=== PATIENT | male | born 1965 | race African-American/Black ===

== ENCOUNTER 2022-05-25 10:42 | Inpatient (IN) | payer BC ==
[2022-05-25 13:19] LABS: Acetaminophen Less than 10.0 mcg/mL (10.0-30.0); Alcohol Less than 10 mg/dL (Less than 10); Salicylate Less than 8.0 mg/dL (15.0-30.0)
[2022-05-25 13:28] LABS: ALT (SGPT) 16 U/L (8-55); AST (SGOT) 18 U/L (5-34); Albumin 4.3 g/dL (3.5-5.0); Alkaline Phosphatase 85 U/L (40-110); Anion Gap 23 mmol/L (10-20); BUN (Urea Nitrogen) 71 mg/dL (8.4-25.7); Bilirubin, Total 1.1 mg/dL (0.2-1.2); CK (CPK) 224 U/L (30-200); Calc. Creatinine Clearance 0 mL/min (70-130); Calcium 9.5 mg/dL (7.8-10.44); Carbon Dioxide 21 mmol/L (22-29); Chloride 106 mmol/L (98-107); Estimated GFR 23; Globulin 3.3 g/dL (2.4-3.5); Potassium 5.2 mmol/L (3.5-5.1); Protein, Total 7.6 g/dL (6.0-8.3); Sodium 145 mmol/L (136-145)
[2022-05-25 13:32] LABS: Glucose 584 mg/dL (70-105)
[2022-05-25 13:37] LABS: #Lymphocytes 0.5 thou/uL (1.20-3.40); #Monocytes 0.6 thou/uL (0.11-0.59); #Neutrophils 12.3 thou/uL (1.40-6.50); %Basophils 0.2 % (0.0-1.0); %Eosinophils 0.2 % (0.0-10.0); %Monocytes 4.1 % (0.0-10.0); %Neutrophils 91.5 % (42.0-75.0); Large Platelets SLIGHT; MDiff Complete? YES; Mean Corpuscular HGB CONC 31.9 g/dL (32.0-36.0); Mean Corpuscular Hemoglobin 31.7 pg (27.0-31.0); Mean Corpuscular Volume 99.3 fL (78.0-98.0); Mean Platelet Volume 12.4 fL (7.4-10.4); Platelet Count 65 thou/uL (130-400); Platelet Morphology Comment Appears Decreased; Polychromasia SLIGHT = 2-3 cells (100X) (0-2/hpf); RBC Distribution Width 13.2 % (11.5-14.5); Red Blood Cell (RBC) Count 5.69 mill/uL (4.70-6.10); White Blood Cell (WBC) Count 13.5 thou/uL (4.8-10.8)
[2022-05-25 13:52] LABS: CKMB 3.2 ng/mL (0-6.6)
[2022-05-25 13:53] LABS: Phosphorus 4.8 mg/dL (2.3-4.7)
[2022-05-25 13:55] LABS: Magnesium 2.7 mg/dL (1.6-2.6)
[2022-05-25 14:12] LABS: Actual Bicarbonate (HCO3v) 23 mEq/L (22-28); Base Excess -3.9 mEq/L (-2.0 to +3.0); Calcium, Ionized (venous) 1.12 mmol/L (1.16-1.32); Chloride (VBG) 109 mmol/L (98-106); Potassium (VBG) 5.25 mmol/L (3.70-5.30); Sodium 146.8 mmol/L (133-146); pH (venous) 7.29 (7.32-7.43)
[2022-05-25] MEDS ORDERED: Aspirin Chewable 81 MG TAB ONE (14:32)
[2022-05-25] MEDS ORDERED: INSULIN REGULAR IN 0.9 % NACL 100 UNIT/100 ML BAG ONE (14:33)
[2022-05-25 14:57] LABS: Amphetamine Not Detected (NotDetected); Barbiturates Screen Not Detected (NotDetected); Benzodiazepine Screen Not Detected (NotDetected); Cocaine Metabolite Screen Not Detected (NotDetected); Methadone Not Detected (NotDetected); Methamphetamine Not Detected (NotDetected); Opiate Screen Not Detected (NotDetected); Oxycodone Screen Not Detected (NotDetected); Phencyclidine (PCP) Not Detected (NotDetected); THC/Cannabinoid Screen Not Detected (NotDetected); Tricyclic Screen Not Detected (NotDetected)
[2022-05-25 14:58] LABS: Bilirubin Negative (Negative); Blood, Urine Negative (Negative); Clarity Clear (Clear); Glucose, Urine (Dipstick) Greater than 1000 mg/dL (Negative); Ketone, Urine 20 mg/dL (Negative); Leukocyte Negative Leu/uL (Negative); Nitrite Negative (Negative); Protein, Urine (Dipstick) Negative (Neg-Trace); Specific Gravity, Urine 1.016 (1.002-1.036); Urobilinogen Normal mg/dL (Less than 2)
[2022-05-25] MEDS ORDERED: Acetaminophen 325 MG TAB PO PRN (16:43)
[2022-05-25] MEDS ORDERED: Electrolyte Replacement Protocol 1 EACH IVPB PRN (16:43)
[2022-05-25] MEDS ORDERED: NS 0.9% w/ 20 MEQ KCL 1,000 ML IV PRN ×2 (16:43)
[2022-05-25] MEDS ORDERED: hydrALAZINE 20 MG/ML VIAL SLOW IVP PRN (16:43)
[2022-05-25] MEDS ORDERED: Sodium Chloride 0.9% 1,000 ML IV PRN ×4 (16:43)
[2022-05-25] MEDS ORDERED: Dextrose 5 %-0.45 % NaCl 1,000 ML IV PRN (16:43)
[2022-05-25] MEDS ORDERED: HUMULIN R 100 UNITS in Sodium Chloride 0.9% 100 ML IVPB SCH (16:45)
[2022-05-25 17:09] LABS: Troponin I 0.038 ng/mL (< 0.028)
[2022-05-25 17:33] LABS: Anion Gap 22 mmol/L (10-20); BUN (Urea Nitrogen) 62 mg/dL (8.4-25.7); Calc. Creatinine Clearance 0 mL/min (70-130); Calcium 8.8 mg/dL (7.8-10.44); Carbon Dioxide 15 mmol/L (22-29); Chloride 117 mmol/L (98-107); Estimated GFR 30; Glucose 351 mg/dL (70-105); Potassium 4.3 mmol/L (3.5-5.1); Sodium 150 mmol/L (136-145)
[2022-05-25] MEDS: D5 1/2 NS w/20 mEq KCL 1,000 ML IV PRN ×2 (19:00→23:00)
[2022-05-25] MEDS ORDERED: Vancomycin 1 GM in Premix Bag 1 BAG IVPB SCH ×2 (20:00→22:00)
[2022-05-25 20:57] LABS: Troponin I 0.048 ng/mL (< 0.028)
[2022-05-25 20:59] LABS: Anion Gap 13 mmol/L (10-20); BUN (Urea Nitrogen) 58 mg/dL (8.4-25.7); Calc. Creatinine Clearance 0 mL/min (70-130); Calcium 8.4 mg/dL (7.8-10.44); Carbon Dioxide 22 mmol/L (22-29); Chloride 124 mmol/L (98-107); Estimated GFR 34; Glucose 84 mg/dL (70-105); Potassium 3.7 mmol/L (3.5-5.1); Sodium 155 mmol/L (136-145)
[2022-05-25] MEDS ORDERED: Cefepime 1 GM in Sodium Chloride 0.9% 100 ML IVPB SCH (21:00)
[2022-05-25 21:32] VITALS: BMI 28.5
[2022-05-26 01:36] LABS: Anion Gap 13 mmol/L (10-20); BUN (Urea Nitrogen) 51 mg/dL (8.4-25.7); Calc. Creatinine Clearance 56 mL/min (70-130); Calcium 8.1 mg/dL (7.8-10.44); Carbon Dioxide 22 mmol/L (22-29); Chloride 122 mmol/L (98-107); Estimated GFR 39; Glucose 284 mg/dL (70-105); Sodium 153 mmol/L (136-145)
[2022-05-26] MEDS: D5 1/2 NS w/20 mEq KCL 1,000 ML IV PRN (03:05)
[2022-05-26 05:02] LABS: Anion Gap 10 mmol/L (10-20); BUN (Urea Nitrogen) 43 mg/dL (8.4-25.7); Calc. Creatinine Clearance 62 mL/min (70-130); Calcium 8.1 mg/dL (7.8-10.44); Carbon Dioxide 22 mmol/L (22-29); Estimated GFR 44; Glucose 147 mg/dL (70-105); Potassium 3.7 mmol/L (3.5-5.1); Sodium 155 mmol/L (136-145)
[2022-05-26 05:06] LABS: #Lymphocytes 0.9 thou/uL (1.20-3.40); #Monocytes 0.5 thou/uL (0.11-0.59); #Neutrophils 9.2 thou/uL (1.40-6.50); %Basophils 0.1 % (0.0-1.0); %Eosinophils 0.3 % (0.0-10.0); %Lymphocytes 8.5 % (21.0-51.0); %Monocytes 4.5 % (0.0-10.0); %Neutrophils 86.7 % (42.0-75.0); Hemoglobin 16.1 g/dL (14.0-18.0); Mean Corpuscular HGB CONC 33.1 g/dL (32.0-36.0); Mean Corpuscular Hemoglobin 32.9 pg (27.0-31.0); Mean Corpuscular Volume 99.2 fL (78.0-98.0); Platelet Count 60 thou/uL (130-400); RBC Distribution Width 13.6 % (11.5-14.5); Red Blood Cell (RBC) Count 4.88 mill/uL (4.70-6.10); White Blood Cell (WBC) Count 10.6 thou/uL (4.8-10.8)
[2022-05-26 05:08] LABS: Chloride 127 mmol/L (98-107)
[2022-05-26] MEDS: Levothyroxine Sodium 50 MCG TAB PO SCH (05:40)
[2022-05-26] MEDS: Hydrocortisone 10 mg Tablet PO SCH (08:03)
[2022-05-26] MEDS ORDERED: Cefepime 1 GM in Sodium Chloride 0.9% 100 ML IVPB SCH (09:00)
[2022-05-26 16:52] LABS: Anion Gap 13 mmol/L (10-20); BUN (Urea Nitrogen) 33 mg/dL (8.4-25.7); Calc. Creatinine Clearance 65 mL/min (70-130); Calcium 8.2 mg/dL (7.8-10.44); Carbon Dioxide 23 mmol/L (22-29); Chloride 122 mmol/L (98-107); Estimated GFR 46; Glucose 294 mg/dL (70-105); Potassium 5.3 mmol/L (3.5-5.1); Sodium 153 mmol/L (136-145)
[2022-05-26] MEDS ORDERED: Dextrose 50% Abboject 50 ML SYRINGE SLOW IVP PRN (17:14)
[2022-05-26] MEDS ORDERED: Dextrose 5% in Water 1,000 ML IV PRN (17:14)
[2022-05-26] MEDS ORDERED: Communication Order-Pharmacy FS PRN (17:57)
[2022-05-26] MEDS: HumaLOG 300 UNITS/3 ML VIAL SC PRN ×2 (18:12→20:41)
[2022-05-26] MEDS ORDERED: Vancomycin 1.5 GRAM/300 ML BAG 1.5 GM in Premix Bag 1 BAG IVPB SCH (20:00)
[2022-05-27 05:45] LABS: Anion Gap 11 mmol/L (10-20); BUN (Urea Nitrogen) 28 mg/dL (8.4-25.7); Calc. Creatinine Clearance 69 mL/min (70-130); Calcium 8.4 mg/dL (7.8-10.44); Carbon Dioxide 23 mmol/L (22-29); Estimated GFR 49; Glucose 169 mg/dL (70-105); Magnesium 2.4 mg/dL (1.6-2.6); Sodium 156 mmol/L (136-145)
[2022-05-27] MEDS: Levothyroxine Sodium 50 MCG TAB PO SCH (06:00)
[2022-05-27 06:23] LABS: Chloride 126 mmol/L (98-107)
[2022-05-27 06:25] LABS: Albumin 3.3 g/dL (3.5-5.0); Phosphorus 1.5 mg/dL (2.3-4.7)
[2022-05-27 07:31] LABS: Hemoglobin A1c 11.1 % (4.0-6.0)
[2022-05-27] MEDS ORDERED: Desmopressin 0.2 mg Tablet PO SCH (08:00)
[2022-05-27] MEDS ORDERED: D5 1/4 NS 1,000 ML IV SCH (08:15)
[2022-05-27] MEDS: Hydrocortisone 10 mg Tablet PO SCH (09:01)
[2022-05-27] MEDS: PHOS-NAK 1 PKT PACK PO SCH ×3 (09:01→20:21)
[2022-05-27] MEDS: Insulin Glargine 30 UNITS/0.3 ML VIAL SC SCH (09:07)
[2022-05-27 16:20] LABS: Anion Gap 10 mmol/L (10-20); BUN (Urea Nitrogen) 28 mg/dL (8.4-25.7); Calc. Creatinine Clearance 59 mL/min (70-130); Calcium 8.9 mg/dL (7.8-10.44); Carbon Dioxide 27 mmol/L (22-29); Chloride 115 mmol/L (98-107); Estimated GFR 41; Glucose 383 mg/dL (70-105); Sodium 148 mmol/L (136-145)
[2022-05-27] MEDS: Sodium Chloride 0.45% 1,000 ML IV SCH (17:22)
[2022-05-27] MEDS: HumaLOG 300 UNITS/3 ML VIAL SC PRN (19:38)
[2022-05-28] MEDS ORDERED: Pantoprazole 40 MG VIAL IVP SCH (01:11)
[2022-05-28] MEDS: Calcium Carbonate 500 MG ChewTAB PO PRN ×2 (01:30→09:41)
[2022-05-28] MEDS: Sodium Chloride 0.45% 1,000 ML IV SCH ×2 (01:30→09:42)
[2022-05-28 04:37] LABS: Anion Gap 13 mmol/L (10-20); BUN (Urea Nitrogen) 21 mg/dL (8.4-25.7); Calc. Creatinine Clearance 78 mL/min (70-130); Calcium 8.8 mg/dL (7.8-10.44); Carbon Dioxide 20 mmol/L (22-29); Chloride 119 mmol/L (98-107); Estimated GFR 58; Glucose 108 mg/dL (70-105); Potassium 3.9 mmol/L (3.5-5.1); Sodium 148 mmol/L (136-145)
[2022-05-28] MEDS: Levothyroxine Sodium 50 MCG TAB PO SCH (05:45)
[2022-05-28 07:40] VITALS: TEMP 97.7
[2022-05-28] MEDS ORDERED: Sodium Bicarbonate Tab 325 MG TAB PO SCH (09:00)
[2022-05-28] MEDS ORDERED: Desmopressin 0.2 mg Tablet PO SCH (09:00)
[2022-05-28] MEDS: Hydrocortisone 10 mg Tablet PO SCH (09:39)
[2022-05-28] MEDS: Insulin Glargine 30 UNITS/0.3 ML VIAL SC SCH (09:39)
[2022-05-29] MEDS ORDERED: Pantoprazole 40 MG VIAL IVP SCH (09:00)
== END 2022-05-28 15:33 | disposition home or self-care (01) | DRG 643 ==
LOC: ERS 10:42 → EEVIPCON 14:24 → ERHOLD 14:24 → IMCU/EMU 18:53
PROVIDERS: ADMIT Internal Medicine; ATTEND Hospitalist
DX: E23.2 Diabetes insipidus (principal); E11.10 Type 2 diabetes mellitus with ketoacidosis without coma; N17.9 Acute kidney failure, unspecified; E27.40 Unspecified adrenocortical insufficiency; Z20.822 Contact with and (suspected) exposure to COVID-19; E78.5 Hyperlipidemia, unspecified; D69.6 Thrombocytopenia, unspecified; E03.9 Hypothyroidism, unspecified; D86.9 Sarcoidosis, unspecified; E83.39 Other disorders of phosphorus metabolism; Z86.16 Personal history of COVID-19; Z79.890 Hormone replacement therapy; Z79.899 Other long term (current) drug therapy
CPT/HCPCS: 36415; 36416; 70450; 71045; 80048; 80053; 80306; 80307; 81003; 82010; 82040; 82340; 82550; 82553; 82570; 82805; 83036; 83735; 83935; 84100; 84300; 84439; 84443; 84484; 85025; 85652; 86140; 87040; 93005; 94760; 96361; 96374; C9113; J0692; J1815; J3370; J3480; J3490; J7042; J7070

== ENCOUNTER 2022-06-23 12:04 | Outpatient (CLI) | payer BC | END 2022-06-23 12:05 | disposition home or self-care (01) | LOC: BICULT 12:04 | PROVIDERS: ATTEND Internal Medicine Nephrology | DX: R60.0 Localized edema (principal); I82.411 Acute embolism and thrombosis of right femoral vein; I82.431 Acute embolism and thrombosis of right popliteal vein ==

== ENCOUNTER 2023-06-16 12:53 | Outpatient (CLI) | payer BC ==
[~2023-06-16 12:53] MED LIST: Iopamidol-370 76% 500 ML MDV (1 ML CHARGE) ONE
== END 2023-06-16 12:54 | disposition home or self-care (01) ==
LOC: BICCT 12:53
PROVIDERS: ATTEND Physician Assistant Medical
DX: K21.9 Gastro-esophageal reflux disease without esophagitis (principal)
CPT/HCPCS: 74177; 82565; Q9967

== ENCOUNTER 2023-11-16 15:06 | Emergency (ER) | payer BC ==
[2023-11-16] MEDS ORDERED: Amiodarone 150 MG/3 ML VIAL ONE (15:12)
[2023-11-16] MEDS ORDERED: Calcium Chloride 1 GM/10 ML Abboject SYRINGE ONE (15:12)
[2023-11-16] MEDS ORDERED: Sodium Bicarb 50 MEQ/50 ML Abboject 8.4% SYRINGE ONE (15:12)
[2023-11-16] MEDS ORDERED: EPINEPHrine 1 MG/10 ML Abboject SYRINGE ONE (15:12)
[2023-11-16] MEDS ORDERED: Propofol 1,000 MG/100 ML VIAL IV ONE (15:15)
[2023-11-16] MEDS ORDERED: NOREPINEPHRINE 8 MG/250 ML-D5W 250 ML ONE (15:24)
[2023-11-16] MEDS ORDERED: EPINEPHrine 1 MG/ML VIAL ONE (15:39)
[2023-11-16] MEDS ORDERED: Vasopressin 20 UNITS/ML VIAL ONE (15:40)
[2023-11-16] MEDS ORDERED: Fentanyl CADD 100 ML IV SCH (15:45)
[2023-11-16 15:47] LABS: #Monocytes 0.3 thou/uL (0.11-0.59); #Neutrophils 2.8 thou/uL (1.40-6.50); %Basophils 0.2 % (0.0-1.0); %Eosinophils 0.6 % (0.0-10.0); %Lymphocytes 33.7 % (21.0-51.0); %Monocytes 6.3 % (0.0-10.0); %Neutrophils 55.1 % (42.0-75.0); Hematocrit 30.2 % (42.0-52.0); Hemoglobin 9.4 g/dL (14.0-18.0); Mean Corpuscular HGB CONC 31.1 g/dL (32.0-36.0); Mean Corpuscular Hemoglobin 33.5 pg (27.0-31.0); Mean Corpuscular Volume 107.5 fl (78.0-98.0); Mean Platelet Volume 11.6 fL (7.4-10.4); RBC Distribution Width 15.8 % (11.5-14.5); Red Blood Cell (RBC) Count 2.81 mill/uL (4.70-6.10); White Blood Cell (WBC) Count 5.1 10x3/uL (4.8-10.8)
[2023-11-16 15:48] LABS: Platelet Count 53 10x3/uL (130-400)
[2023-11-16 15:58] LABS: INR-International Normal Ratio 3.5; Prothrombin Time 35.5 sec (12.0-14.7)
[2023-11-16 16:00] LABS: PTT 113.8 sec (22.9-36.1)
[2023-11-16 16:04] LABS: Acetaminophen Less than 10 mcg/mL (10.0-30.0); Alcohol Less than 10.0 mg/dL (Less than 10); Critical Call Chem-Lactate NUR.ALT1@1604; Lipase 52 U/L (8-78); Magnesium 1.1 mg/dL (1.6-2.6); Salicylate Less than 8.0 mg/dL (15.0-30.0)
[2023-11-16 16:05] LABS: ALT (SGPT) 386 U/L (8-55); AST (SGOT) 472 U/L (5-34); Albumin 1.2 g/dL (3.5-5.0); Alkaline Phosphatase 41 U/L (40-110); Anion Gap 18 mmol/L (10-20); BUN (Urea Nitrogen) 15 mg/dL (8.4-25.7); Bilirubin, Total 0.3 mg/dL (0.2-1.2); Calc. Creatinine Clearance 0 mL/min (70-130); Carbon Dioxide 11 mmol/L (22-29); Chloride 125 mmol/L (98-107); Estimated GFR 96; Globulin 0.8 g/dL (2.4-3.5); Glucose 150 mg/dL (70-105)
[2023-11-16 16:07] LABS: Troponin I 0.031 ng/mL (< 0.028)
[2023-11-16 16:08] LABS: D-Dimer Test 10.77 *mcg/mL (0.27-0.43)
[2023-11-16] MEDS ORDERED: ALTEPLASE 50 MG/50 ML VIAL ONE ×2 (16:16→16:17)
[2023-11-16 16:20] LABS: Calcium 3.8 mg/dL (7.8-10.44); Potassium 1.7 mmol/L (3.5-5.1); Sodium 152 mmol/L (136-145)
[2023-11-16] MEDS ORDERED: Potassium Chloride 20 MEQ (100 mL) BAG ONE ×2 (16:24→19:16)
[2023-11-16] MEDS ORDERED: Heparin 5,000 UNITS/ML VIAL ONE (16:29)
[2023-11-16] MEDS ORDERED: Heparin 25,000 units/D5W 500 ML ONE (16:29)
[2023-11-16 16:46] LABS: Actual Bicarbonate (HCO3a) 24.5 mEq/L (22-28); Analyzer IN Cardio ER; Base Excess (BEa) -2.2 mEq/L (-2.0 to +3.0); CO2 Tension 48.9 mmHg (35.0-45.0); Calcium, Ionized (arterial) 1.35 mmol/L (1.12-1.30); Carboxyhemoglobin (COHb) 0.4 gm% (0.0-3.0); Hematocrit-ABG 46 % (42.0-52.0); Hemoglobin (Hb) 15.7 g/dL (14.0-18.0); O2 Tension (PaO2), arterial 333.4 mmHg (80.0-100.0); Potassium - ABG Lab 3.24 mmol/L (3.70-5.30); pH, Arterial 7.318 (7.35-7.45)
[2023-11-16 16:58] LABS: ALV-art Gradient 318.475 mmHg (0-20)
[2023-11-16 17:54] LABS: Bacteria/HPF 3+ HPF (None Seen); Bilirubin Negative (Negative); Blood, Urine 1+ (Negative); CAUTI Indications for Culture Urological Procedure; Clarity Turbid (Clear); Glucose, Urine (Dipstick) Greater than 1000 mg/dL (Negative); Ketone, Urine Negative (Negative); Leukocyte 500 Leu/uL (Negative); Nitrite Negative (Negative); Protein, Urine (Dipstick) 100 mg/dL (Neg-Trace); RBC/HPF 0-3 HPF (0-3); Specific Gravity, Urine 1.016 (1.002-1.036); Squamous Epithelial None Seen HPF (0-3); Urobilinogen Normal mg/dL (Less than 2); WBC/HPF Greater than 50 HPF (0-3)
[2023-11-16 17:56] LABS: Amphetamine Not Detected (NotDetected); Barbiturates Screen Not Detected (NotDetected); Benzodiazepine Screen Not Detected (NotDetected); Cocaine Metabolite Screen Not Detected (NotDetected); Methadone Not Detected (NotDetected); Methamphetamine Not Detected (NotDetected); Opiate Screen Not Detected (NotDetected); Oxycodone Screen Not Detected (NotDetected); Phencyclidine (PCP) Not Detected (NotDetected); THC/Cannabinoid Screen Not Detected (NotDetected); Tricyclic Screen Not Detected (NotDetected)
[2023-11-16 18:00] LABS: Urine Culture Reflex Yes Yes
[2023-11-16] MEDS ORDERED: Sodium Chloride 0.9% 200 ML ONE (18:19)
[2023-11-16] MEDS ORDERED: cefTRIAXone (ROCEPHIN) 1 GM VIAL ONE (18:19)
[2023-11-16] MEDS ORDERED: Magnesium 2 GM/50 ML BAG (IN WATER) ONE (18:19)
[2023-11-16] MEDS ORDERED: LORazepam 2 MG/ML SYR.(CARPUJECT) ONE (19:15)
[2023-11-16 19:27] LABS: Critical Call Chem-Lactate NUR.JRH@1927; Lactic Acid 5.2 mmol/L (0.5-2.2)
== END 2023-11-16 19:48 | disposition short-term general hospital (02) ==
LOC: ERS 15:06
DX: I26.99 Other pulmonary embolism without acute cor pulmonale (principal); I46.9 Cardiac arrest, cause unspecified; E87.6 Hypokalemia; E83.42 Hypomagnesemia; I47.20 Ventricular tachycardia, unspecified; E11.9 Type 2 diabetes mellitus without complications; E03.9 Hypothyroidism, unspecified; E78.00 Pure hypercholesterolemia, unspecified
CPT/HCPCS: 31500; 36556; 70450; 71045; 71275; 80053; 80306; 80307; 81001; 82805; 83605; 83690; 83735; 83880; 84484; 85025; 85379; 85610; 85730; 87040; 87077; 87086; 87186; 92950; 93005; 94002; 94760; 96361; 96365; 96366; 96367; 96368; 96375; 99292; J0171; J0282; J0696; J1644; J2060; J2704; J2997; J3010; J3475; J3480; J3490; Q9967

== ENCOUNTER 2024-07-21 12:35 | Outpatient (CLI) | payer BC ==
[2024-07-21] MEDS ORDERED: Iopamidol 370 76% 100 ML VIAL ONE (14:11)
== END 2024-07-21 12:36 | disposition home or self-care (01) ==
LOC: BICCT 12:35
PROVIDERS: ATTEND Registered Nurse
DX: I26.02 Saddle embolus of pulmonary artery with acute cor pulmonale (principal); R59.0 Localized enlarged lymph nodes; Z86.718 Personal history of other venous thrombosis and embolism
CPT/HCPCS: 36415; 71275; 82565; Q9967

== ENCOUNTER 2024-10-11 19:21 | Inpatient (IN) | payer BC ==
[2024-10-11 20:04] LABS: #Basophils 0.04 10x3/uL (0.0-0.2); %Basophils 0.5 % (0.0-1.0); %Eosinophils 0.5 % (0.0-10.0); %Monocytes 11.8 % (0.0-10.0); %Neutrophils 69.8 % (42.0-75.0); Hematocrit 56.7 % (42.0-52.0); Hemoglobin 18.8 g/dL (14.0-18.0); Mean Corpuscular HGB CONC 33.2 g/dL (32.0-36.0); Mean Corpuscular Hemoglobin 31.2 pg (27.0-31.0); Mean Platelet Volume 11.2 fL (7.4-10.4); Platelet Count 236 10x3/uL (130-400); RBC Distribution Width 16.3 % (11.5-14.5); Red Blood Cell (RBC) Count 6.03 mill/uL (4.70-6.10)
[2024-10-11 20:18] LABS: Magnesium 2.9 mg/dL (1.6-2.6)
[2024-10-11 20:19] LABS: Acetaminophen Less than 10 mcg/mL (Less than 10); Alcohol Less than 10.0 mg/dL (Less than 10); Salicylate Less than 8.0 mg/dL (Less than 8.0)
[2024-10-11 20:21] LABS: Base Excess -3.4 mEq/L (-2.0 to +3.0); Calcium, Ionized (venous) 1.29 mmol/L (1.16-1.32); Chloride (VBG) 118 mmol/L (98-106); Hematocrit-VBG 60 % (42.0-52.0); Hemoglobin (Hb) 20.3 g/dL (13.1-17.2); Potassium (VBG) 4.49 mmol/L (3.70-5.30); pH (venous) 7.292 (7.32-7.43)
[2024-10-11 20:24] LABS: Troponin I 0.021 ng/mL (< 0.028)
[2024-10-11 20:24] LABS: Sodium 166 mmol/L (133-146)
[2024-10-11] MEDS ORDERED: Cefepime 2 GM VIAL ONE (20:34)
[2024-10-11] MEDS ORDERED: Sodium Chloride 0.9% 100 ML ONE (20:34)
[2024-10-11 20:39] LABS: ALT (SGPT) 42 U/L (8-55); AST (SGOT) 37 U/L (5-34); Albumin 4.7 g/dL (3.5-5.0); Alkaline Phosphatase 82 U/L (40-110); Anion Gap 23 mmol/L (10-20); BUN (Urea Nitrogen) 27 mg/dL (8.4-25.7); Calc. Creatinine Clearance 0 mL/min (70-130); Calcium 11.1 mg/dL (7.8-10.44); Carbon Dioxide 22 mmol/L (22-29); Chloride 126 mmol/L (98-107); Estimated GFR 24; Globulin 3.5 g/dL (2.4-3.5); Glucose 395 mg/dL (70-105); Potassium 4.4 mmol/L (3.5-5.1); Protein, Total 8.2 g/dL (6.0-8.3); Sodium 167 mmol/L (136-145)
[2024-10-11 21:07] LABS: Amphetamine Not Detected (NotDetected); Barbiturates Screen Not Detected (NotDetected); Benzodiazepine Screen Not Detected (NotDetected); Cocaine Metabolite Screen Not Detected (NotDetected); Methadone Not Detected (NotDetected); Methamphetamine Not Detected (NotDetected); Opiate Screen Not Detected (NotDetected); Oxycodone Screen Not Detected (NotDetected); Phencyclidine (PCP) Not Detected (NotDetected); THC/Cannabinoid Screen Not Detected (NotDetected); Tricyclic Screen Not Detected (NotDetected)
[2024-10-11 21:46] LABS: Bilirubin Negative (Negative); Blood, Urine Negative (Negative); CAUTI Indications for Culture Alt mental st,lethar; Clarity Clear (Clear); Glucose, Urine (Dipstick) Greater than 1000 mg/dL (Negative); Ketone, Urine Negative (Negative); Leukocyte 250 Leu/uL (Negative); Nitrite 1+ (Negative); Protein, Urine (Dipstick) Negative (Neg-Trace); RBC/HPF 0-3 HPF (0-3); Specific Gravity, Urine 1.015 (1.002-1.036); Squamous Epithelial None Seen HPF (0-3); Urobilinogen Normal mg/dL (Less than 2)
[2024-10-11 21:47] LABS: Bacteria/HPF Rare-Few HPF (None Seen)
[2024-10-11 21:49] LABS: Urine Culture Reflex Yes Yes
[2024-10-11] MEDS ORDERED: Ondansetron PF 4 MG/2 ML Vial IVP PRN (22:03)
[2024-10-11] MEDS ORDERED: Acetaminophen 325 MG TAB PO PRN (22:03)
[2024-10-11] MEDS ORDERED: Glucagon 1 MG/ML KIT IM PRN (22:04)
[2024-10-11] MEDS ORDERED: Dextrose 5% in Water 1,000 ML IV PRN (22:04)
[2024-10-11] MEDS ORDERED: Dextrose 50% Abboject 50 ML SYRINGE SLOW IVP PRN (22:04)
[2024-10-11 22:52] LABS: Anion Gap 16 mmol/L (10-20); BUN (Urea Nitrogen) 26 mg/dL (8.4-25.7); Calc. Creatinine Clearance 0 mL/min (70-130); Calcium 10.7 mg/dL (7.8-10.44); Carbon Dioxide 27 mmol/L (22-29); Chloride 128 mmol/L (98-107); Estimated GFR 24; Glucose 302 mg/dL (70-105); Potassium 4.4 mmol/L (3.5-5.1); Sodium 167 mmol/L (136-145)
[2024-10-11 23:04] VITALS: BMI 28.8
[2024-10-11] MEDS: Vancomycin (BATCH) 2 GM in Premix 1 BAG IVPB SCH (23:12)
[2024-10-11] MEDS: Dextrose 5% in Water 1,000 ML IV SCH (23:29)
[2024-10-12] MEDS ORDERED: Apixaban 5 MG TAB ONE (00:46)
[2024-10-12] MEDS: Desmopressin 0.2 mg Tablet PO SCH ×2 (01:18→11:54)
[2024-10-12] MEDS: Hydrocortisone 10 mg Tablet PO SCH (01:19)
[2024-10-12] MEDS: Apixaban 5 MG TAB PO SCH ×2 (01:19→09:23)
[2024-10-12] MEDS: Insulin Regular, Human 100 UNIT/ML 10 ML VIAL SC PRN ×3 (03:58→20:44)
[2024-10-12 05:33] LABS: #Basophils Less than 0.03 10x3/uL (0.0-0.2); %Basophils 0.3 % (0.0-1.0); %Eosinophils 0.4 % (0.0-10.0); %Lymphocytes 11.6 % (21.0-51.0); %Monocytes 9.2 % (0.0-10.0); %Neutrophils 78.4 % (42.0-75.0); Hematocrit 54.8 % (42.0-52.0); Hemoglobin 17.6 g/dL (14.0-18.0); Mean Corpuscular HGB CONC 32.1 g/dL (32.0-36.0); Mean Corpuscular Hemoglobin 30.6 pg (27.0-31.0); Mean Corpuscular Volume 95.1 fL (78.0-98.0); Mean Platelet Volume 11.3 fL (7.4-10.4); Platelet Count 204 10x3/uL (130-400); RBC Distribution Width 16.2 % (11.5-14.5); Red Blood Cell (RBC) Count 5.76 mill/uL (4.70-6.10)
[2024-10-12 05:46] LABS: Anion Gap 17 mmol/L (10-20); BUN (Urea Nitrogen) 25 mg/dL (8.4-25.7); Calc. Creatinine Clearance 42 mL/min (70-130); Calcium 9.9 mg/dL (7.8-10.44); Carbon Dioxide 24 mmol/L (22-29); Chloride 130 mmol/L (98-107); Estimated GFR 28; Glucose 347 mg/dL (70-105); Magnesium 2.5 mg/dL (1.6-2.6); Potassium 4.4 mmol/L (3.5-5.1); Sodium 167 mmol/L (136-145)
[2024-10-12] MEDS ORDERED: Hydrocortisone 10 mg Tablet PO SCH (09:00)
[2024-10-12] MEDS: Hydrocortisone Sod Succ/PF 100 mg/2 ml Vial IVP SCH (09:23)
[2024-10-12] MEDS: cefTRIAXone\\ROCEPHIN 2 GM in Sodium Chloride 0.9% 100 ML IVPB SCH (09:24)
[2024-10-12 11:20] LABS: Sodium 164 mmol/L (136-145)
[2024-10-12 11:42] LABS: Albumin 3.9 g/dL (3.5-5.0); Anion Gap 19 mmol/L (10-20); BUN (Urea Nitrogen) 25 mg/dL (8.4-25.7); BUN/Creatinine Ratio 10.08; Calc. Creatinine Clearance 43 mL/min (70-130); Calcium 9.9 mg/dL (7.8-10.44); Carbon Dioxide 23 mmol/L (22-29); Chloride 128 mmol/L (98-107); Estimated GFR 29; Glucose 457 mg/dL (70-105); Phosphorus 3.5 mg/dL (2.3-4.7); Potassium 4.7 mmol/L (3.5-5.1); Sodium 165 mmol/L (136-145)
[2024-10-12] MEDS: Insulin Glargine 30 UNITS/0.3 ML VIAL SC SCH ×2 (12:02→19:11)
[2024-10-12 17:20] LABS: Sodium 157 mmol/L (136-145)
[2024-10-12] MEDS ORDERED: Insulin Lispro 100 UNIT/ML 10 ML VIAL SC PRN (18:00)
[2024-10-12 22:09] LABS: Sodium 154 mmol/L (136-145)
[2024-10-13] MEDS: traZODone HCl 50 MG TAB PO SCH (04:57)
[2024-10-13 06:48] LABS: #Basophils Less than 0.03 10x3/uL (0.0-0.2); %Basophils 0.1 % (0.0-1.0); %Eosinophils 0.4 % (0.0-10.0); %Lymphocytes 13.4 % (21.0-51.0); %Monocytes 8.7 % (0.0-10.0); %Neutrophils 77.1 % (42.0-75.0); Hematocrit 43.8 % (42.0-52.0); Hemoglobin 14.4 g/dL (14.0-18.0); Mean Corpuscular HGB CONC 32.9 g/dL (32.0-36.0); Mean Corpuscular Hemoglobin 30.6 pg (27.0-31.0); Mean Corpuscular Volume 93.2 fL (78.0-98.0); Platelet Count 172 10x3/uL (130-400); RBC Distribution Width 14.6 % (11.5-14.5)
[2024-10-13 07:13] LABS: Anion Gap 11 mmol/L (10-20); BUN (Urea Nitrogen) 25 mg/dL (8.4-25.7); Calc. Creatinine Clearance 50 mL/min (70-130); Calcium 9.2 mg/dL (7.8-10.44); Carbon Dioxide 27 mmol/L (22-29); Chloride 121 mmol/L (98-107); Estimated GFR 34; Glucose 100 mg/dL (70-105); Potassium 3.7 mmol/L (3.5-5.1); Sodium 155 mmol/L (136-145)
[2024-10-13 07:45] LABS: Albumin 3.4 g/dL (3.5-5.0); Anion Gap 13 mmol/L (10-20); BUN (Urea Nitrogen) 24 mg/dL (8.4-25.7); BUN/Creatinine Ratio 11.06; Calc. Creatinine Clearance 50 mL/min (70-130); Calcium 9.2 mg/dL (7.8-10.44); Carbon Dioxide 26 mmol/L (22-29); Chloride 121 mmol/L (98-107); Estimated GFR 34; Glucose 99 mg/dL (70-105); Phosphorus 4.3 mg/dL (2.3-4.7); Potassium 3.7 mmol/L (3.5-5.1); Sodium 156 mmol/L (136-145)
[2024-10-13] MEDS ORDERED: Desmopressin 0.2 mg Tablet PO SCH (09:00)
[2024-10-13] MEDS: D5 1/4 NS 1,000 ML IV SCH ×2 (09:48→16:35)
[2024-10-13] MEDS: Desmopressin 0.2 mg Tablet PO SCH (09:49)
[2024-10-13] MEDS: Dextrose 5% in Water 1,000 ML IV SCH (09:56)
[2024-10-13] MEDS: Desmopressin Acetate 0.01% Nasal Solution NASAL SCH (09:59)
[2024-10-13] MEDS: Insulin Glargine 30 UNITS/0.3 ML VIAL SC SCH (10:03)
[2024-10-13 14:14] LABS: Anion Gap 14 mmol/L (10-20); BUN (Urea Nitrogen) 24 mg/dL (8.4-25.7); Calc. Creatinine Clearance 51 mL/min (70-130); Calcium 8.6 mg/dL (7.8-10.44); Carbon Dioxide 23 mmol/L (22-29); Chloride 111 mmol/L (98-107); Estimated GFR 35; Glucose 371 mg/dL (70-105); Potassium 3.9 mmol/L (3.5-5.1); Sodium 144 mmol/L (136-145)
[2024-10-13 20:25] LABS: Anion Gap 13 mmol/L (10-20); BUN (Urea Nitrogen) 27 mg/dL (8.4-25.7); Calc. Creatinine Clearance 52 mL/min (70-130); Calcium 8.4 mg/dL (7.8-10.44); Carbon Dioxide 22 mmol/L (22-29); Chloride 107 mmol/L (98-107); Estimated GFR 36; Glucose 323 mg/dL (70-105); Potassium 3.9 mmol/L (3.5-5.1); Sodium 138 mmol/L (136-145)
[2024-10-13] MEDS: traZODone HCl 50 MG TAB PO PRN (21:48)
[2024-10-14 05:19] LABS: #Basophils Less than 0.03 10x3/uL (0.0-0.2); #Eosinophils Less than 0.03 10x3/uL (0.0-0.7); %Lymphocytes 8.9 % (21.0-51.0); %Neutrophils 86.4 % (42.0-75.0); Hemoglobin 13.3 g/dL (14.0-18.0); Mean Corpuscular HGB CONC 34.1 g/dL (32.0-36.0); Mean Corpuscular Hemoglobin 30.9 pg (27.0-31.0); Mean Corpuscular Volume 90.5 fL (78.0-98.0); Mean Platelet Volume 11.4 fL (7.4-10.4); Platelet Count 152 10x3/uL (130-400); RBC Distribution Width 13.4 % (11.5-14.5); Red Blood Cell (RBC) Count 4.31 mill/uL (4.70-6.10)
[2024-10-14 05:34] LABS: Anion Gap 14 mmol/L (10-20); BUN (Urea Nitrogen) 23 mg/dL (8.4-25.7); Calc. Creatinine Clearance 73 mL/min (70-130); Calcium 7.9 mg/dL (7.8-10.44); Carbon Dioxide 22 mmol/L (22-29); Chloride 104 mmol/L (98-107); Estimated GFR 54; Glucose 133 mg/dL (70-105); Magnesium 1.6 mg/dL (1.6-2.6); Potassium 3.9 mmol/L (3.5-5.1); Sodium 136 mmol/L (136-145)
[2024-10-14] MEDS: Desmopressin 0.2 mg Tablet PO SCH (05:52)
[2024-10-14] MEDS: Magnesium Sulfate In Water 4 GM in Premix 1 BAG IVPB SCH (10:15)
[2024-10-14 12:43] LABS: Anion Gap 14 mmol/L (10-20); BUN (Urea Nitrogen) 21 mg/dL (8.4-25.7); Calc. Creatinine Clearance 84 mL/min (70-130); Calcium 7.8 mg/dL (7.8-10.44); Carbon Dioxide 21 mmol/L (22-29); Chloride 104 mmol/L (98-107); Estimated GFR 61; Glucose 185 mg/dL (70-105); Sodium 136 mmol/L (136-145)
[2024-10-14] MEDS: Potassium Chloride 20 MEQ TAB PO SCH (13:17)
[2024-10-14] MEDS ORDERED: Potassium Chloride 20 MEQ TAB PO SCH (13:21)
[2024-10-14 13:59] VITALS: TEMP 98.3
[2024-10-14 15:10] LABS: Phosphorus 4.4 mg/dL (2.3-4.7)
[2024-10-14 16:55] VITALS: BP 107/68
[2024-10-15] MEDS ORDERED: FLU (Fluarix Triv) TS24-25(6MOS UP)/PF 45 MCG/0.5 ML Syringe IM ONE (09:00)
== END 2024-10-14 16:51 | disposition home or self-care (01) | DRG 682 ==
LOC: ERS 19:21 → ERHOLD 22:03 → IMCU/EMU 10-12 03:11
PROVIDERS: ADMIT Internal Medicine; ATTEND Internal Medicine
DX: N17.9 Acute kidney failure, unspecified (principal); G93.41 Metabolic encephalopathy; E87.0 Hyperosmolality and hypernatremia; E23.0 Hypopituitarism; N39.0 Urinary tract infection, site not specified; Z16.11 Resistance to penicillins; I13.0 Hypertensive heart and chronic kidney disease with heart failure and stage 1 through stage 4 chronic kidney disease, or unspecified chronic kidney disease; I50.32 Chronic diastolic (congestive) heart failure; E27.40 Unspecified adrenocortical insufficiency; R59.9 Enlarged lymph nodes, unspecified; N18.30 Chronic kidney disease, stage 3 unspecified; E88.09 Other disorders of plasma-protein metabolism, not elsewhere classified; B96.89 Other specified bacterial agents as the cause of diseases classified elsewhere; E11.22 Type 2 diabetes mellitus with diabetic chronic kidney disease; E83.52 Hypercalcemia; E86.0 Dehydration; Z88.0 Allergy status to penicillin; Z86.711 Personal history of pulmonary embolism; Z86.74 Personal history of sudden cardiac arrest
CPT/HCPCS: 36415; 36416; 70450; 71045; 71275; 76770; 80048; 80053; 80306; 80307; 81001; 82010; 82040; 82306; 82533; 82805; 83605; 83735; 83930; 83935; 84100; 84295; 84484; 85025; 87040; 87077; 87086; 87186; 87428; 93005; 94760; 96361; 96365; 96366; 96367; J0692; J0696; J1720; J1815; J3370; J3475; J7042; J7070; Q9967

== ENCOUNTER 2025-06-06 14:40 | Inpatient (IN) | payer BC ==
[2025-06-06] MEDS ORDERED: Hydrocortisone Sod Succ/PF 100 mg/2 ml Vial ONE (15:11)
[2025-06-06] MEDS ORDERED: Cefepime 2 GM VIAL ONE (15:11)
[2025-06-06 15:24] LABS: #Basophils 0.04 10x3/uL (0.0-0.2); #Eosinophils 0.06 10x3/uL (0.0-0.7); #Monocytes 0.89 10x3/uL (0.11-0.59); #Neutrophils 4.40 10x3/uL (1.40-6.50); %Basophils 0.5 % (0.0-1.0); %Eosinophils 0.8 % (0.0-10.0); %Lymphocytes 27.5 % (21.0-51.0); %Monocytes 11.9 % (0.0-10.0); %Neutrophils 59.0 % (42.0-75.0); Hematocrit 62.6 % (42.0-52.0); Hemoglobin 20.4 g/dL (14.0-18.0); Mean Corpuscular Hemoglobin 29.1 pg (27.0-31.0); Mean Corpuscular Volume 89.4 fL (78.0-98.0); Platelet Count 226 10x3/uL (130-400); Red Blood Cell (RBC) Count 7.00 mill/uL (4.70-6.10); White Blood Cell (WBC) Count 7.46 10x3/uL (4.8-10.8)
[2025-06-06 15:43] LABS: Actual Bicarbonate (HCO3v) 23.0 mEq/L (22-28); Base Excess -4.0 mEq/L (-2.0 to +3.0); Calcium, Ionized (venous) 1.20 mmol/L (1.16-1.32); Chloride (VBG) 122 mmol/L (98-106); Hematocrit-VBG 57 % (42.0-52.0); Hemoglobin (Hb) 19.4 g/dL (13.1-17.2); Potassium (VBG) 5.47 mmol/L (3.70-5.30)
[2025-06-06 15:44] LABS: Sodium 161 mmol/L (133-146)
[2025-06-06 16:12] LABS: Magnesium 2.3 mg/dL (1.6-2.6)
[2025-06-06 16:41] LABS: ALT (SGPT) 23 U/L (Less than 45); AST (SGOT) 30 U/L (11-34); Albumin 4.1 g/dL (3.1-4.5); Alkaline Phosphatase 74 U/L (40-110); Anion Gap 20 mmol/L (10-20); BUN (Urea Nitrogen) 28 mg/dL (8.4-25.7); Bilirubin, Total 0.7 mg/dL (0.3-1.2); Calc. Creatinine Clearance 0 mL/min (70-130); Calcium 9.9 mg/dL (7.8-10.44); Carbon Dioxide 22 mmol/L (22-29); Chloride 126 mmol/L (98-107); Globulin 3.3 g/dL (2.4-3.5); Glucose 233 mg/dL (70-105); Lipase 18 U/L (8-78); Magnesium 2.3 mg/dL (1.6-2.6); Potassium 6.0 mmol/L (3.5-5.1); Sodium 162 mmol/L (136-145)
[2025-06-06] MEDS ORDERED: Acetaminophen 500 MG TAB ONE (17:10)
[2025-06-06 17:11] LABS: Bacteria/HPF 4+ HPF (None Seen); CAUTI Indications for Culture Alt mental st,lethar; Glucose, Urine (Dipstick) 50 mg/dL (Negative); Leukocyte 500 Leu/uL (Negative); Protein, Urine (Dipstick) 20 mg/dL (Neg-Trace); RBC/HPF 0-3 HPF (0-3); Specific Gravity, Urine 1.010 (1.002-1.036); WBC/HPF 21-50 HPF (0-3)
[2025-06-06] MEDS ORDERED: CALCIUM GLUC 1 GM/NS 50 ML IV Bag ONE (17:12)
[2025-06-06 17:13] LABS: Urine Culture Reflex Yes Yes
[2025-06-06] MEDS ORDERED: Hydrocortisone Sod Succ/PF 100 mg/2 ml Vial IVP SCH (18:45)
[2025-06-06] MEDS ORDERED: Ondansetron PF 4 MG/2 ML Vial IVP PRN (19:00)
[2025-06-06] MEDS ORDERED: Dextrose 50% Abboject 50 ML SYRINGE SLOW IVP PRN (19:00)
[2025-06-06] MEDS ORDERED: Glucagon 1 MG/ML KIT IM PRN (19:00)
[2025-06-06] MEDS ORDERED: Acetaminophen 325 MG TAB PO PRN (19:00)
[2025-06-06 19:13] LABS: Anion Gap 16 mmol/L (10-20); BUN (Urea Nitrogen) 30 mg/dL (8.4-25.7); Calc. Creatinine Clearance 0 mL/min (70-130); Calcium 9.8 mg/dL (7.8-10.44); Carbon Dioxide 23 mmol/L (22-29); Chloride 129 mmol/L (98-107); Glucose 154 mg/dL (70-105); Potassium 4.1 mmol/L (3.5-5.1); Sodium 164 mmol/L (136-145)
[2025-06-06] MEDS: Hydrocortisone Sod Succ/PF 100 mg/2 ml Vial IVP SCH (22:22)
[2025-06-06] MEDS: Insulin Glargine 30 UNITS/0.3 ML VIAL SC SCH (22:23)
[2025-06-06 22:42] VITALS: BMI 27.1
[2025-06-07 01:36] LABS: Anion Gap 14 mmol/L (10-20); BUN (Urea Nitrogen) 28 mg/dL (8.4-25.7); Calc. Creatinine Clearance 51 mL/min (70-130); Calcium 9.0 mg/dL (7.8-10.44); Carbon Dioxide 21 mmol/L (22-29); Chloride 121 mmol/L (98-107); Glucose 459 mg/dL (70-105); Potassium 5.6 mmol/L (3.5-5.1); Sodium 150 mmol/L (136-145)
[2025-06-07] MEDS: LOKELMA 10 GM PACKET PO SCH (02:03)
[2025-06-07] MEDS: Hydrocortisone Sod Succ/PF 100 mg/2 ml Vial IVP SCH ×2 (02:16→04:28)
[2025-06-07] MEDS: cefTRIAXone\\ROCEPHIN 2 GM in Sodium Chloride 0.9% 100 ML IVPB SCH (04:22)
[2025-06-07 04:58] LABS: #Basophils Less than 0.03 10x3/uL (0.0-0.2); #Eosinophils Less than 0.03 10x3/uL (0.0-0.7); #Monocytes 0.25 10x3/uL (0.11-0.59); #Neutrophils 4.06 10x3/uL (1.40-6.50); %Basophils 0.4 % (0.0-1.0); %Eosinophils 0.2 % (0.0-10.0); %Lymphocytes 13.7 % (21.0-51.0); %Monocytes 5.0 % (0.0-10.0); %Neutrophils 80.5 % (42.0-75.0); Hematocrit 51.3 % (42.0-52.0); Hemoglobin 16.0 g/dL (14.0-18.0); Mean Corpuscular Hemoglobin 28.6 pg (27.0-31.0); Mean Corpuscular Volume 91.6 fL (78.0-98.0); Platelet Count 176 10x3/uL (130-400); Red Blood Cell (RBC) Count 5.60 mill/uL (4.70-6.10); White Blood Cell (WBC) Count 5.04 10x3/uL (4.8-10.8)
[2025-06-07] MEDS: Levothyroxine 150 MCG TAB PO SCH (05:12)
[2025-06-07 05:37] LABS: Anion Gap 13 mmol/L (10-20); BUN (Urea Nitrogen) 27 mg/dL (8.4-25.7); Calc. Creatinine Clearance 49 mL/min (70-130); Calcium 9.5 mg/dL (7.8-10.44); Carbon Dioxide 25 mmol/L (22-29); Chloride 119 mmol/L (98-107); Glucose 314 mg/dL (70-105); Potassium 4.5 mmol/L (3.5-5.1); Sodium 152 mmol/L (136-145)
[2025-06-07] MEDS: Apixaban 5 MG TAB PO SCH (09:54)
[2025-06-07 09:56] VITALS: BMI 24.6
[2025-06-07 10:06] LABS: Anion Gap 14 mmol/L (10-20); BUN (Urea Nitrogen) 25 mg/dL (8.4-25.7); Calc. Creatinine Clearance 52 mL/min (70-130); Calcium 9.3 mg/dL (7.8-10.44); Carbon Dioxide 23 mmol/L (22-29); Chloride 119 mmol/L (98-107); Glucose 323 mg/dL (70-105); Potassium 4.1 mmol/L (3.5-5.1); Sodium 152 mmol/L (136-145)
[2025-06-07 13:30] LABS: Anion Gap 16 mmol/L (10-20); BUN (Urea Nitrogen) 28 mg/dL (8.4-25.7); Calc. Creatinine Clearance 56 mL/min (70-130); Calcium 8.7 mg/dL (7.8-10.44); Carbon Dioxide 20 mmol/L (22-29); Chloride 115 mmol/L (98-107); Glucose 410 mg/dL (70-105); Potassium 4.1 mmol/L (3.5-5.1); Sodium 147 mmol/L (136-145)
[2025-06-07 17:50] LABS: Anion Gap 16 mmol/L (10-20); BUN (Urea Nitrogen) 31 mg/dL (8.4-25.7); Calc. Creatinine Clearance 51 mL/min (70-130); Calcium 9.0 mg/dL (7.8-10.44); Carbon Dioxide 21 mmol/L (22-29); Chloride 116 mmol/L (98-107); Glucose 259 mg/dL (70-105); Potassium 4.2 mmol/L (3.5-5.1); Sodium 149 mmol/L (136-145)
[2025-06-07] MEDS: Pantoprazole 40 MG DR.TAB PO SCH (20:32)
[2025-06-07 22:15] LABS: Anion Gap 15 mmol/L (10-20); BUN (Urea Nitrogen) 34 mg/dL (8.4-25.7); Calc. Creatinine Clearance 53 mL/min (70-130); Calcium 9.0 mg/dL (7.8-10.44); Carbon Dioxide 20 mmol/L (22-29); Chloride 117 mmol/L (98-107); Glucose 188 mg/dL (70-105); Potassium 5.0 mmol/L (3.5-5.1); Sodium 147 mmol/L (136-145)
[2025-06-08 01:37] LABS: Anion Gap 13 mmol/L (10-20); BUN (Urea Nitrogen) 32 mg/dL (8.4-25.7); Calc. Creatinine Clearance 60 mL/min (70-130); Calcium 8.6 mg/dL (7.8-10.44); Carbon Dioxide 21 mmol/L (22-29); Chloride 116 mmol/L (98-107); Glucose 223 mg/dL (70-105); Potassium 4.2 mmol/L (3.5-5.1); Sodium 146 mmol/L (136-145)
[2025-06-08 04:02] LABS: #Basophils Less than 0.03 10x3/uL (0.0-0.2); #Eosinophils Less than 0.03 10x3/uL (0.0-0.7); #Monocytes 0.25 10x3/uL (0.11-0.59); #Neutrophils 6.37 10x3/uL (1.40-6.50); %Basophils 0.0 % (0.0-1.0); %Eosinophils 0.0 % (0.0-10.0); %Lymphocytes 9.0 % (21.0-51.0); %Monocytes 3.4 % (0.0-10.0); %Neutrophils 87.2 % (42.0-75.0); Hematocrit 45.2 % (42.0-52.0); Hemoglobin 14.5 g/dL (14.0-18.0); Mean Corpuscular Hemoglobin 28.6 pg (27.0-31.0); Mean Corpuscular Volume 89.2 fL (78.0-98.0); Platelet Count 148 10x3/uL (130-400); Red Blood Cell (RBC) Count 5.07 mill/uL (4.70-6.10); White Blood Cell (WBC) Count 7.31 10x3/uL (4.8-10.8)
[2025-06-08 04:22] LABS: Anion Gap 12 mmol/L (10-20); BUN (Urea Nitrogen) 30 mg/dL (8.4-25.7); Calc. Creatinine Clearance 60 mL/min (70-130); Calcium 8.7 mg/dL (7.8-10.44); Carbon Dioxide 24 mmol/L (22-29); Chloride 115 mmol/L (98-107); Glucose 217 mg/dL (70-105); Magnesium 1.9 mg/dL (1.6-2.6); Potassium 3.8 mmol/L (3.5-5.1); Sodium 147 mmol/L (136-145)
[2025-06-08] MEDS: Levothyroxine 150 MCG TAB PO SCH (05:21)
[2025-06-08] MEDS: Insulin Glargine 30 UNITS/0.3 ML VIAL SC SCH ×2 (12:57→20:52)
[2025-06-08] MEDS: Melatonin 3 MG TAB PO SCH (20:51)
[2025-06-09 04:12] LABS: #Basophils Less than 0.03 10x3/uL (0.0-0.2); #Eosinophils Less than 0.03 10x3/uL (0.0-0.7); #Monocytes 0.37 10x3/uL (0.11-0.59); #Neutrophils 6.29 10x3/uL (1.40-6.50); %Basophils 0.1 % (0.0-1.0); %Eosinophils 0.0 % (0.0-10.0); %Lymphocytes 8.9 % (21.0-51.0); %Monocytes 5.0 % (0.0-10.0); %Neutrophils 85.7 % (42.0-75.0); Hematocrit 40.9 % (42.0-52.0); Hemoglobin 13.4 g/dL (14.0-18.0); Mean Corpuscular Hemoglobin 28.8 pg (27.0-31.0); Mean Corpuscular Volume 87.8 fL (78.0-98.0); Platelet Count 145 10x3/uL (130-400); Red Blood Cell (RBC) Count 4.66 mill/uL (4.70-6.10); White Blood Cell (WBC) Count 7.34 10x3/uL (4.8-10.8)
[2025-06-09 04:26] LABS: Anion Gap 13 mmol/L (10-20); BUN (Urea Nitrogen) 31 mg/dL (8.4-25.7); Calc. Creatinine Clearance 76 mL/min (70-130); Calcium 8.6 mg/dL (7.8-10.44); Carbon Dioxide 23 mmol/L (22-29); Chloride 111 mmol/L (98-107); Glucose 95 mg/dL (70-105); Magnesium 2.0 mg/dL (1.6-2.6); Potassium 3.5 mmol/L (3.5-5.1); Sodium 143 mmol/L (136-145)
[2025-06-10 04:21] LABS: #Basophils Less than 0.03 10x3/uL (0.0-0.2); #Eosinophils Less than 0.03 10x3/uL (0.0-0.7); #Monocytes 0.32 10x3/uL (0.11-0.59); #Neutrophils 4.59 10x3/uL (1.40-6.50); %Basophils 0.2 % (0.0-1.0); %Eosinophils 0.0 % (0.0-10.0); %Lymphocytes 12.7 % (21.0-51.0); %Monocytes 5.7 % (0.0-10.0); %Neutrophils 81.0 % (42.0-75.0); Hematocrit 42.9 % (42.0-52.0); Hemoglobin 13.6 g/dL (14.0-18.0); Mean Corpuscular Hemoglobin 28.9 pg (27.0-31.0); Mean Corpuscular Volume 91.3 fL (78.0-98.0); Platelet Count 125 10x3/uL (130-400); Red Blood Cell (RBC) Count 4.70 mill/uL (4.70-6.10); White Blood Cell (WBC) Count 5.66 10x3/uL (4.8-10.8)
[2025-06-10] MEDS: Hydrocortisone Sod Succ/PF 100 mg/2 ml Vial IVP SCH (05:04)
[2025-06-10] MEDS ORDERED: Hydrocortisone Sod Succ/PF 100 mg/2 ml Vial IVP SCH (07:00)
[2025-06-10 09:00] LABS: Chloride 108 mmol/L (98-107); Potassium 3.2 mmol/L (3.5-5.1); Sodium 141 mmol/L (136-145)
[2025-06-10 09:01] LABS: Calcium 8.5 mg/dL (7.8-10.44)
[2025-06-10 09:02] LABS: Glucose 146 mg/dL (70-105)
[2025-06-10 09:03] LABS: Anion Gap 13 mmol/L (10-20); Carbon Dioxide 23 mmol/L (22-29)
[2025-06-10 09:05] LABS: BUN (Urea Nitrogen) 23 mg/dL (8.4-25.7); Calc. Creatinine Clearance 102 mL/min (70-130)
[2025-06-11 04:31] LABS: Anion Gap 13 mmol/L (10-20); BUN (Urea Nitrogen) 31 mg/dL (8.4-25.7); Calc. Creatinine Clearance 86 mL/min (70-130); Calcium 8.4 mg/dL (7.8-10.44); Carbon Dioxide 23 mmol/L (22-29); Chloride 107 mmol/L (98-107); Glucose 133 mg/dL (70-105); Potassium 4.2 mmol/L (3.5-5.1); Sodium 139 mmol/L (136-145)
[2025-06-11] MEDS: Dapagliflozin Propanediol 10 MG TAB PO SCH (10:15)
[2025-06-12 03:54] LABS: Anion Gap 13 mmol/L (10-20); BUN (Urea Nitrogen) 32 mg/dL (8.4-25.7); Calc. Creatinine Clearance 77 mL/min (70-130); Calcium 8.5 mg/dL (7.8-10.44); Carbon Dioxide 22 mmol/L (22-29); Chloride 109 mmol/L (98-107); Glucose 127 mg/dL (70-105); Magnesium 2.2 mg/dL (1.6-2.6); Potassium 4.0 mmol/L (3.5-5.1); Sodium 140 mmol/L (136-145)
[2025-06-12 12:23] VITALS: BP 109/76; TEMP 97.6
== END 2025-06-12 12:24 | disposition home or self-care (01) | DRG 643 ==
LOC: ERS 14:40 → CCU 18:07 → PCU 06-08 00:34
PROVIDERS: ADMIT Internal Medicine; ATTEND Student in an Organized Health Care Education/Training Program
DX: E23.0 Hypopituitarism (principal); G93.41 Metabolic encephalopathy; E27.40 Unspecified adrenocortical insufficiency; N17.9 Acute kidney failure, unspecified; I13.0 Hypertensive heart and chronic kidney disease with heart failure and stage 1 through stage 4 chronic kidney disease, or unspecified chronic kidney disease; N39.0 Urinary tract infection, site not specified; I50.32 Chronic diastolic (congestive) heart failure; E23.2 Diabetes insipidus; E03.9 Hypothyroidism, unspecified; Z79.890 Hormone replacement therapy; Z79.899 Other long term (current) drug therapy; E11.22 Type 2 diabetes mellitus with diabetic chronic kidney disease; N18.30 Chronic kidney disease, stage 3 unspecified; D86.89 Sarcoidosis of other sites; I50.9 Heart failure, unspecified; Z88.1 Allergy status to other antibiotic agents; I95.9 Hypotension, unspecified; D75.1 Secondary polycythemia; R00.0 Tachycardia, unspecified; E11.21 Type 2 diabetes mellitus with diabetic nephropathy; E11.65 Type 2 diabetes mellitus with hyperglycemia
CPT/HCPCS: 36415; 36416; 70450; 71045; 76770; 80048; 80053; 81001; 82010; 82805; 83605; 83690; 83735; 83880; 84100; 84443; 84484; 85025; 87040; 87086; 93005; 96361; 96365; 96366; 96367; 96375; J0613; J0692; J0696; J1720; J1815; J7070